=== PATIENT | male | born 1975 | race Two or more races ===

== ENCOUNTER 2024-12-16 09:27 | Emergency (ER) | payer OTHER ==
[~2024-12-16] VITALS: Ht 182.9 cm; Wt 83.0 kg
[2024-12-16 11:02] LABS: BASO % 1.4 % (0.1-1.2); EOS # 0.07 (0.04-0.54); EOS % 1.4 % (0.7-7.0); HEMATOCRIT 48.1 % (40.1-51.0); HEMOGLOBIN 16.2 g/dL (13.7-17.5); LYMPH # 1.13 (1.18-3.74); LYMPH % 22.5 % (19.3-53.1); MEAN CORPUSCULAR HEMOGLOBIN 32.8 pg (25.6-32.2); MONO # 0.49 (0.24-0.82); MONO % 9.8 % (4.7-12.5); NEUT # 3.24 (1.56-6.13); NEUT % 64.5 % (34.0-71.1); PLATELET COUNT 258 K/uL (163-369); RED BLOOD COUNT 4.94 M/uL (4.63-6.08); RED CELL DISTRIBUTION WIDTH 11.6 % (11.6-14.4)
[2024-12-16 12:10] LABS: BILIRUBIN TOTAL 1.21 mg/dL (0.3-1.2); CALCIUM 9.7 mg/dL (8.5-10.1); CREATININE SERUM 0.91 mg/dL (0.70-1.30); GFR 89.3; GLOBULINA 4.6 G/DL (2.4-3.5); POTASSIUM 4.81 mEq/L (3.5-5.1); TOTAL PROTEIN 8.6 gm/dL (6.4-8.2)
== END 2024-12-16 13:11 | disposition home or self-care (01) ==
LOC: ER 09:54
DX: R19.7 Diarrhea, unspecified (principal)